=== PATIENT | male | born 1960 | race Caucasian/White ===

== ENCOUNTER 2017-10-07 15:52 | Inpatient (IN) | payer BC, OTHER ==
[~2017-10-07] VITALS: Ht 160 cm; Wt 89.2 kg
[2017-10-07] MEDS ORDERED: SOD CHLORIDE 0.9% 500 ML IV STA (16:28)
[2017-10-07 17:03] LABS: ABNORMAL IP MESSAGE 1; HEMATOCRIT 16.7 % (42.0-52.0); MEAN CORPUSCULAR HEMOGLOBIN 16.3 pg (29.0-33.0); MEAN CORPUSCULAR HGB CONC 25.1 g/dl (32.0-37.0); MEAN CORPUSCULAR VOLUME 64.7 fl (82.0-101.0); MEAN PLATELET VOLUME 10.5 fl (7.4-10.4); NUCLEATED RED BLOOD CELLS% 0.4 /100WBC (0.0-0.0); PLATELET COUNT 276 10^3/UL (140-415); POSITIVE DIFF @See below; RED BLOOD COUNT 2.58 10^6/ul (4.70-6.10); RED CELL DISTRIBUTION WIDTH 21.2 % (11.5-14.5); WHITE BLOOD COUNT 4.7 10^3/ul (4.8-10.8)
[2017-10-07 17:15] LABS: HEMOGLOBIN 4.2 g/dl (14.0-18.0)
[2017-10-07 17:16] LABS: INR 1.13; PROTIME 14.5 Sec (12.2-14.2); PT RATIO 1.1
[2017-10-07 17:17] LABS: PARTIAL THROMBOPLASTIN TIME 25.4 Sec (25.0-35.0)
[2017-10-07 17:21] LABS: ALANINE AMINOTRANSFERASE 26 IU/L (13-69); ALBUMIN 3.8 g/dl (3.3-4.9); ALBUMIN/GLOBULIN RATIO 1.26; ALKALINE PHOSPHATASE 80 IU/L (42-121); ANION GAP 13 (8-16); ASPARTATE AMINO TRANSFERASE 20 IU/L (15-46); BILIRUBIN,INDIRECT 0.2 mg/dl (0-1.1); BILIRUBIN,TOTAL 0.2 mg/dl (0.2-1.3); BLOOD UREA NITROGEN 8 mg/dl (7-20); CALCIUM 8.1 mg/dl (8.4-10.2); CARBON DIOXIDE 25 mmol/L (21-31); CHLORIDE 105 mmol/L (97-110); CREATININE 0.53 mg/dl (0.61-1.24); GLUCOSE 89 mg/dl (70-220); POTASSIUM 4.2 mmol/L (3.5-5.1); SODIUM 139 mmol/L (135-144); TOTAL PROTEIN 6.8 g/dl (6.1-8.1)
[2017-10-07 17:35] LABS: TROPONIN-I < 0.012 ng/ml (0.00-0.12)
[2017-10-07] MEDS ORDERED: FAMOTIDINE 20 MG INJ IV ONE (18:00)
[2017-10-07 18:03] LABS: ANISOCYTOSIS 3+ (0-0); BASOPHILS % (M) 1 % (0-2); EOSINOPHILS % (M) 3 % (0-7); ERYTHROBLAST% (NRBC) (M) 1 % (0-0); HYPOCHROMASIA 2+ (0-0); MICROCYTOSIS 3+ (0-0); MONOCYTES % (M) 6 % (0-11); PLATELET ESTIMATE NORMAL; POIKILOCYTOSIS 3+ (0-0); POLYCHROMASIA 2+ (0-0)
--- NOTE | 2017-10-07 18:18 | RADRPT ---
PROCEDURE: CT SCAN OF THE ABDOMEN AND PELVIS NON CONTRAST CLINICAL INDICATION: Left Mid abdominal pain, GI bleed TECHNIQUE: Utilizing the multi-slice spiral CT scanner, Transaxial images were obtained through the abdomen and pelvis without contrast. Additional sagittal, coronal, MPR images were also obtained. DICOM images are available Radiation Dose: CTDI vol 17.75 mGy, DLP 1169.32 mGy-cm. One of more of the following dose reduction techniques were utilized: -automatic exposure control -adjustment of the mA and/or kV according to patient size -Use of iterative reconstruction technique Contrast used: None COMPARISON: None FINDINGS: Limited slices through the lung bases demonstrates large retrocardiac hernia containing the entire s tomach, cardiomegaly without pericardial effusion or pneumothorax noted. CT Abdomen Liver, spleen, gallbladder, pancreas, adrenals appear unremarkable. Left kidney demonstrates [address] one in the left renal sinus without hydronephrosis. Large amount of intra-abdominal fat is noted. Bud wel gas pattern appears nonspecific with no free air or ascites noted. Appendix is seen appearing un remarkable. No retroperitoneal adenopathy noted. CT pelvis: Diverticuli noted in the rectosigmoid colon. Distended bladder normal prostate with calc ifications noted. No pelvic ascites seen. Bilateral inguinal hernia contains fat. IMPRESSION: Large retrocardiac hernia contains stomach. Nonobstructive stone left kidney. Few diverticula and distal descending colon and sigmoid colon without CT evidence of acute diverticu litis noted. RPTAT: AAOO Physician Carter Date Time Electronically viewed and signed by Physician Carter on 10/07/2017 18:18 MB/
[2017-10-07 18:36] LABS: RETICULOCYTE COUNT % 3.5 % (0.5-1.5)
--- NOTE | 2017-10-07 20:36 | ERD ---
ER Documentation Chief Complaint Chief Complaint CRITICAL LOW HG 5.6 HCT 21.5 HPI 57-year-old male comes to the emergency room his primary care doctor found his laboratories to have an emergent condition of a hemoglobin of 5.6. Patient states that he has been increasingly tired weak and dizzy especially while he is working. Denies any chest pain or shortness of breath. Denies any abdominal pain currently but states that he had abdominal pain in his left mid abdomen on and off before. He denies any dark stools or blood in his stools. He has not vomited. ROS All systems reviewed and are negative except as per history of present illness. PMhx/Soc Medical and Surgical Hx: pt denies Medical Hx Hx Alcohol Use: No Hx Substance Use: No Hx Tobacco Use: No Smoking Status: Never smoker Physical Exam Vitals Vital Signs Date Time Temp Pulse Resp B/P Pulse Ox O2 Delivery O2 Flow Rate FiO2 10/07/17 18:25 98.8 72 17 110/58 100 Room Air 10/07/17 16:02 99.8 76 20 128/58 99 Physical Exam Const: [] Mild distress, appears uncomfortable Head: Atraumatic Eyes: Normal scleral conjunctiva, very pale conjunctiva and lower eyelid ENT: Normal External Ears, Nose and Mouth. Neck: Full range of motion..~ No meningismus. Resp: Clear to auscultation bilaterally Cardio: Regular rate and rhythm, no murmurs Abd: Soft, non tender, non distended. Normal bowel sounds Skin: No petechiae, pale Ext: No cyanosis, or edema Neur: Awake and alert and oriented 3, no focal deficits Psych: Normal Mood and Affect Result Diagram: 10/07/17 1545 10/07/17 1545 Results 24 hrs Laboratory Tests Test 10/07/17 15:45 White Blood Count 4.710^3/ul Red Blood Count 2.5810^6/ul Hemoglobin 4.2g/dl Hematocrit 16.7% Mean Corpuscular Volume 64.7fl Mean Corpuscular Hemoglobin 16.3pg Mean Corpuscular Hemoglobin Concent 25.1g/dl Red Cell Distribution Width 21.2% Platelet Count 17745^3/UL Mean Platelet Volume 10.5fl Neutrophils % % Segmented Neutrophils % (Manual) 63% Lymphocytes % % Lymphocytes % (Manual) 27% Monocytes % % Monocytes % (Manual) 6% Eosinophils % % Eosinophils % (Manual) 3% Basophils % % Basophils % (Manual) 1% Nucleated Red Blood Cells % 1% Neutrophils # 10^3/ul Absolute Lymphocytes (Manual) 1.210^3/ul Lymphocytes # 10^3/ul Monocytes # 10^3/ul Absolute Monocytes (Manual) 0.210^3/ul Eosinophils # 10^3/ul Basophils # 10^3/ul Basophils # (Manual) 0.010^3/ul Nucleated Red Blood Cells # 10^3/ul Platelet Estimate NORMAL Polychromasia 2+ Hypochromasia 2+ Poikilocytosis 3+ Anisocytosis 3+ Microcytosis 3+ Absolute Reticulocyte Count 0.092X10^6 Percent Reticulocyte Count 3.5% Prothrombin Time 14.5Sec Prothrombin Time Ratio 1.1 INR International Normalized Ratio 1.13 Activated Partial Thromboplast Time 25.4Sec Sodium Level 139mmol/L Potassium Level 4.2mmol/L Chloride Level 105mmol/L Carbon Dioxide Level 25mmol/L Anion Gap 13 Blood Urea Nitrogen 8mg/dl Creatinine 0.53mg/dl Glucose Level 89mg/dl Calcium Level 8.1mg/dl Total Bilirubin 0.2mg/dl Direct Bilirubin 0.00mg/dl Indirect Bilirubin 0.2mg/dl Aspartate Amino Transf (AST/SGOT) 20IU/L Alanine Aminotransferase (ALT/SGPT) 26IU/L Alkaline Phosphatase 80IU/L Lactate Dehydrogenase 666IU/L Troponin I < 0.012ng/ml Total Protein 6.8g/dl Albumin 3.8g/dl Globulin 3.00g/dl Albumin/Globulin Ratio 1.26 Current Medications Medications (Trade) Dose Ordered Sig/Jolene Route PRN Reason Start Time Stop Time Status Last Admin Dose Admin Sodium Chloride (NS) 500 ml @ 500 mls/hr Q1H STAT IV 10/07/17 16:28 10/07/17 17:27 DC 10/07/17 17:01 Famotidine (Pepcid Iv) 20 mg ONCE ONCE IV 10/07/17 18:00 10/07/17 18:01 DC 10/07/17 17:56 Procedures/MDM Severe symptomatic anemia of unknown origin. Because of patient's vital sign stability is likely this process is been going on for some time and is somewhat compensated. He has no history of GI bleeding. Lactate dehydrogenase only slightly elevated hemolysis possibility but less likely. He will be admitted for further workup as the source is still likely GI. Signs remained stable and is being transfused 2 units of packed red blood cells to start with. Further transfusion will be handled by the admitting team. Abdomen pelvis reveals diverticulosis which is a possible conduit for the bleeding. Was hydrated with 500 cc of normal saline CT abdomen pelvis interpretation: Abdominal hernia, diverticulosis without diverticulitis, see no abnormal fat stranding, no free air perforation, no bowel obstruction, no fractures. Departure Diagnosis: Primary Impression: Severe anemia Additional Impressions: Symptomatic anemia Diverticulosis Condition: Serious ROYCE WELLS Oct 07, 2017 20:34
[2017-10-07] MEDS ORDERED: ACETAMINOPHEN 325 MG TAB PO PRN (21:00)
[2017-10-07] MEDS ORDERED: ONDANSETRON 4 MG INJ IV PRN (21:00)
[2017-10-07 22:02] LABS: TOTAL IRON BINDING CAPACITY 488 ug/dl (241-421)
[2017-10-07 22:09] LABS: IRON < 10 ug/dl (35-150)
[2017-10-08 00:16] VITALS: TEMP 98
[2017-10-08 01:00] VITALS: BP 116/57; PULSE 72; RESP 20
[2017-10-08 01:47] VITALS: Ht 160 cm; Wt 89.2 kg
[2017-10-08 02:18] VITALS: BP 122/66; RESP 20
[2017-10-08] MEDS: PANTOPRAZOLE 40 MG INJ IV SCH (05:21)
[2017-10-08 06:04] LABS: ABNORMAL IP MESSAGE 1; BASOPHILS % 0.6 % (0.0-2.0); EOSINOPHILS # 0.1 10^3/ul (0.0-0.5); EOSINOPHILS % 2.8 % (0.0-7.0); HEMATOCRIT 21.9 % (42.0-52.0); LYMPHOCYTES % 28.7 % (15.0-51.0); MEAN CORPUSCULAR HEMOGLOBIN 19.2 pg (29.0-33.0); MEAN CORPUSCULAR HGB CONC 27.9 g/dl (32.0-37.0); MEAN CORPUSCULAR VOLUME 68.9 fl (82.0-101.0); MONOCYTE # 0.3 10^3/ul (0.3-0.9); NEUTROPHIL # 2.1 10^3/ul (1.6-7.5); NEUTROPHILS % 59.5 % (39.0-77.0); NUCLEATED RED BLOOD CELLS # 0.1 10^3/ul (0.0-0.0); NUCLEATED RED BLOOD CELLS% 1.4 /100WBC (0.0-0.0); PLATELET COUNT 260 10^3/UL (140-415); POSITIVE DIFF @See below; RED BLOOD COUNT 3.18 10^6/ul (4.70-6.10); WHITE BLOOD COUNT 3.6 10^3/ul (4.8-10.8)
[2017-10-08 06:09] LABS: HEMOGLOBIN 6.1 g/dl (14.0-18.0)
[2017-10-08 06:31] LABS: ALBUMIN 3.5 g/dl (3.3-4.9); ALBUMIN/GLOBULIN RATIO 1.2; BILIRUBIN,INDIRECT 1.5 mg/dl (0-1.1); BILIRUBIN,TOTAL 1.5 mg/dl (0.2-1.3); CALCIUM 8.2 mg/dl (8.4-10.2); CREATININE 0.58 mg/dl (0.61-1.24); POTASSIUM 4.1 mmol/L (3.5-5.1); TOTAL PROTEIN 6.4 g/dl (6.1-8.1)
[2017-10-08 07:47] VITALS: BP 101/57; RESP 16
[2017-10-08] MEDS ORDERED: ONDANSETRON 4 MG INJ IV PRN (11:00)
--- NOTE | 2017-10-08 11:33 | HP ---
DATE OF ADMISSION: 10/07/2017 REASON FOR ADMISSION: Anemia. 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 A ccording to the patient, he had been feeling weak and tired for the last 2 to 3 weeks. Two times wh en he was working in the garden he felt dizzy, but there was no episode of any passing out. He star carlos eduardo noticing the left flank pain a week ago and that made him worried and went to the PMD. Patient went to the PMD and had labs drawn that showed hemoglobin of 5.6 and was told to come to the emergen cy department. Of note, patient said that he does not watch his poop always. He maybe might have h ad some blood in the poop. Denied any hematemesis, any melena, any hematuria. Denied any hemoptysi s. Patient said that he lost 10 pounds in the past 2 to 3 months which was probably intentional and sometimes he feels a joint pain which he says that probably due to his job. On arrival to ED, the patient had a hemoglobin of 5.2, white count of 4.2. The patient was given 2 units of blood and rep eat hemoglobin was 6.1 and he was admitted. PAST MEDICAL HISTORY: None. PAST SURGICAL HISTORY: The patient had a right wrist surgery many years ago and left surgery many years ago due to fall and due to accident. MEDICATIONS TAKING AT HOME: NONE. ALLERGIES: NONE. SOCIAL HISTORY: Denies any history of smoking, alcohol the patient used to take all drugs and quit 20 years ago. FAMILY HISTORY: Lives with the family, and children. No history of any cancer in the family. The patient never had an EGD or any colonoscopy. REVIEW OF SYSTEMS: The patient complains of generalized weakness, body aches and some dizziness spe lls 2 weeks ago and some left flank pain. Denies any headache, any blurry vision. Denies any chest pain, any shortness of breath, denies any cough. Denies any hematemesis, any melena, any bright bl ood per rectum. Denies any hematuria. Denies any focal neurological deficits. PHYSICAL EXAMINATION: VITAL SIGNS: Temperature afebrile, heart rate 79, respirations 18, blood pressure 101/57. GENERAL: Awake, alert, oriented x4, moderately built male, does not appear to be in any acute distr ess. HEENT: Pupils equal, round, reactive to light. Marked pallor present. NECK: Thick, supple, no JVD. HEART: Regular rate and rhythm. CHEST: Clear breath sounds bilaterally. ABDOMEN: Soft, nontender, nondistended, positive normoactive bowel sounds. EXTREMITIES: No clubbing, cyanosis, or edema. BACK: The patient does not have any flank pain. DIAGNOSTICS: BMP shows a BUN of 6, creatinine of 0.8, calcium 8.2, total bilirubin 1.5, indirect 1. 5. AST, ALT within normal limit. Alkaline phosphatase 76, LDH 666, total iron less than 10, TIBC 4 88. Percent sat is pending. White count is 3.6, hemoglobin is 6.1 from 4.2, MCV 68.9, platelet cou nt is 260, percent retic is 3.5. ASSESSMENT: This is a 57-year-old man presenting with: 1. Severe anemia which appears to be microcytic in nature. The patient seems to be iron deficient, ; however, the patient's total bilirubin is elevated and also positive high LDH, cannot rule o ut hemolysis. 2. Leukopenia. 3. Dizzy spells probably secondary to severe anemia. 4. Obesity. 5. Severe microcytosis. PLAN: At this period of time, the patient will be admitted to med/surg. The patient is status post 2 units of blood and receiving third unit of blood. Patient will send for haptoglobin. Peripheral smear will be reviewed by french binder. Will start the patient on IV iron [address] Jammie daly with hematology has already been consulted and GI has already been consulted, Dr. Pate, for bot h EGD and colonoscopy. The patient also had a CT of the abdomen and pelvis which showed large retro cardiac hernia containing stomach, nonobstructive stone left kidney, few diverticula. The rest of t he treatment will depend on the patient hospitalization course. Dictated By: GARCIA MONDRAGON/HARI Conf#: [id number] DID#: [id number] CC: PAU DURAN MD;*EndCC*
--- NOTE | 2017-10-08 12:15 | QN ---
Documentation Comment H AND P DONE GARCIA LOTT MD Oct 08, 2017 12:15
[2017-10-08] MEDS: SOD FERRIC GLUC COMPLX 125 MG in SOD CHLORIDE 0.9% 100 ML IVPB SCH (12:24)
--- NOTE | 2017-10-08 12:35 | CONS ---
Date/Time of Note Date/Time of Note DATE: 10/08/17 TIME: 12:10 Assessment/Plan Assessment/Plan Chief Complaint/Hosp Course Summary Assessment and Plan: Assessment: Severe iron deficiency anemia Dizziness-likely secondary to anemia Plan: Continue to monitor H/H- transfuse if Hgb less than 7.5 EGD/Colonoscopy tomorrow NPO after 10am Clear liquids today Endoscopy - risks/benefits/alternatives/indications of procedure and sedation/ anesthesia discussed with patient who states understanding and gives informed consent to proceed. All questions answered Chief Complaint/Reason for Visit: Iron deficiency anemia History of Present Illness: This is a 57-year-old male with no previous past medical history admitted to the ER from primary doctor for hemoglobin of 5.6, Pt was c/o dizziness at the work site and left flank pain, went to see PCP and was found to be anemic. He was given 2units of PRBCs since admission, HGB was reevaluated noted to be 6.1 x1 more unit was then given. GI has been consulted due to GOLDY. At the time of evaluation patient denies, abdominal pain, nausea, vomiting, hematemesis, hematochezia, dysphagia, hematuria, unintentional weight loss. He states he does not usually look at the color of stool last time he did look described as brown. Bowel movements are daily described as being hard. He also complains of left flank pain aggravated with exertion relieved with resting, describes pain as a twisting feeling has improved since admission. He has never had an EGD or colonoscopy. He denies any family history of colon cancer. Plan is to start clear liquids today n.p.o. after 10 AM tomorrow, and EGD/colonoscopy tomorrow afternoon. Continue to monitor H&H and transfuse hemoglobin less than 7.5 Past Medical History: No past medical history Allergies: No known allergies PHYSICAL EXAMINATION: GENERAL: Well developed, well nourished, alert & oriented x 3, in no acute distress SKIN: No lesions, no stigmata chronic liver disease, no evidence of bleeding diathesis LYMPHATIC: No palpable lymphadenopathy. HEAD: Normocephalic, atraumatic, no tenderness. EYES: Pupils equal reactive to light and accommodation, full extraocular movements, sclera clear, non-icteric, no discharge. EARS/NOSE AND THROAT: Ears normal, nose normal, oropharynx normal, oral membranes well hydrated without lesions. NECK: Supple, no masses. CHEST: Inspection within normal limits. CARDIOVASCULAR: Heart: Regular rate and rhythm, no murmurs, gallops or rubs. P GASTROINTESTINAL AND LIVER: Abdomen: Soft, non tenderness, non-distended, no hernias, no masses, no organomegaly, no ascites, no guarding, no rebound tenderness, normoactive bowel sounds. Rectal: Deferred. GENITOURINARY: Male genitalia within normal limits. EXTREMITIES: No cyanosis, clubbing or edema. Problems: Consultation Date/Type/Reason Admit Date/Time Oct 07, 2017 at 20:41 Date of Consultation: Oct 08, 2017 Type of Consultation: GI Reason for Consultation Iron deficiency anemia Constitutional: no complaints Eyes: no complaints ENT: no complaints Respiratory: no complaints Cardiovascular: no complaints Gastrointestinal: no complaints Genitourinary: no complaints Skin: no complaints Neurologic: no complaints Past Medical History Medical History: no pertinent history Past Surgical History Past Surgical Hx: other (Elbow surgery) Family History Significant Family History: other (No family history of colon cancer) Social History Smoking Status: Former smoker (Quit over 30 years ago) Drug Use: other (History of drug use, denies history of IV drug use) Exam/Review of Systems Vital Signs Vitals Vital Signs Date Time Temp Pulse Resp B/P Pulse Ox O2 Delivery O2 Flow Rate FiO2 10/08/17 07:47 98.9 79 16 101/57 99 10/08/17 01:00 Room Air Intake and Output 10/07/17 10/07/17 10/08/17 15:00 23:00 07:00 Intake Total 400 ml Output Total 1750 ml Balance -1350 ml Results Result Diagram: 10/08/17 0527 10/08/17 0527 Results 24 hrs Laboratory Tests Test 10/07/17 15:45 10/07/17 21:13 10/08/17 05:27 10/08/17 06:17 White Blood Count 4.7 L 3.6 #L Red Blood Count 2.58 L 3.18 #L Hemoglobin 4.2 *L 6.1 #*L Hematocrit 16.7 L 21.9 #L Mean Corpuscular Volume 64.7 L 68.9 L Mean Corpuscular Hemoglobin 16.3 L 19.2 L Mean Corpuscular Hemoglobin Concent 25.1 L 27.9 L Red Cell Distribution Width 21.2 H 23.0 H Platelet Count 276 260 Mean Platelet Volume 10.5 H 10.0 Neutrophils % 59.5 Segmented Neutrophils % (Manual) 63 Lymphocytes % 28.7 Lymphocytes % (Manual) 27 Monocytes % 7.0 Monocytes % (Manual) 6 Eosinophils % 2.8 Eosinophils % (Manual) 3 Basophils % 0.6 Basophils % (Manual) 1 Nucleated Red Blood Cells % 1 H 1.4 H Neutrophils # 2.1 Absolute Lymphocytes (Manual) 1.2 Lymphocytes # 1.0 Monocytes # 0.3 Absolute Monocytes (Manual) 0.2 L Eosinophils # 0.1 Basophils # 0.0 Basophils # (Manual) 0.0 Nucleated Red Blood Cells # 0.1 H Platelet Estimate NORMAL Polychromasia 2+ Hypochromasia 2+ Poikilocytosis 3+ Anisocytosis 3+ Microcytosis 3+ Absolute Reticulocyte Count 0.092 Percent Reticulocyte Count 3.5 H Prothrombin Time 14.5 H Prothrombin Time Ratio 1.1 INR International Normalized Ratio 1.13 Activated Partial Thromboplast Time 25.4 Sodium Level 139 141 Potassium Level 4.2 4.1 Chloride Level 105 106 Carbon Dioxide Level 25 27 Anion Gap 13 12 Blood Urea Nitrogen 8 6 L Creatinine 0.53 L 0.58 L Glucose Level 89 101 Calcium Level 8.1 L 8.2 L Total Bilirubin 0.2 1.5 H Direct Bilirubin 0.00 0.00 Indirect Bilirubin 0.2 1.5 H Aspartate Amino Transf (AST/SGOT) 20 16 Alanine Aminotransferase (ALT/SGPT) 26 19 Alkaline Phosphatase 80 76 Lactate Dehydrogenase 666 H Troponin I < 0.012 Total Protein 6.8 6.4 Albumin 3.8 3.5 Globulin 3.00 2.90 Albumin/Globulin Ratio 1.26 1.20 Iron Level < 10 L Total Iron Binding Capacity 488 H Percent Iron Saturation Ferritin 3.4 L Lab Scanned Report BLOOD TRANSFUSION Medications Medications Current Medications Pantoprazole (Protonix Iv) 40 mg DAILY@06 IV Last administered on 10/08/17t 05 :21; Admin Dose 40 MG; Start 10/08/17 at 06:00 Acetaminophen 650 mg 650 mg Q6H PRN PO PAIN AND OR ELEVATED TEMP; Start at 02:00 Ferric Sodium Gluconate Complex/ Sodium Chloride (Ferrlecit/NS) 110 ml @ 110 mls/hr Q24H IVPB ; Start 10/08/17 at 12:00; Stop 10/12/17 at 12:59 Ondansetron HCl (Zofran Inj) 4 mg Q6H PRN IV NAUSEA AND/OR VOMITING; Start at 11:00 Tramadol HCl (Ultram) 50 mg Q6 PRN NGT pain; Start 10/08/17 at 11:00 Copies To: CC: VAUGHN TUCKER MD [facility] Oct 08, 2017 12:20
[2017-10-08] MEDS ORDERED: BISACODYL (EC) 5 MG TAB PO ONE (13:00)
[2017-10-08 13:06] LABS: INR 1.13; PROTIME 14.5 Sec (12.2-14.2); PT RATIO 1.1
[2017-10-08 14:57] LABS: ABNORMAL IP MESSAGE 1; BASOPHILS % 0.6 % (0.0-2.0); EOSINOPHILS # 0.1 10^3/ul (0.0-0.5); HEMATOCRIT 25.7 % (42.0-52.0); HEMOGLOBIN 7.2 g/dl (14.0-18.0); LYMPHOCYTES # 1.3 10^3/ul (0.8-2.9); LYMPHOCYTES % 26.5 % (15.0-51.0); MEAN CORPUSCULAR HEMOGLOBIN 19.8 pg (29.0-33.0); MEAN CORPUSCULAR VOLUME 70.8 fl (82.0-101.0); MEAN PLATELET VOLUME 9.9 fl (7.4-10.4); MONOCYTE # 0.4 10^3/ul (0.3-0.9); MONOCYTES % 7.9 % (0.0-11.0); NEUTROPHIL # 3.2 10^3/ul (1.6-7.5); NEUTROPHILS % 62.2 % (39.0-77.0); NUCLEATED RED BLOOD CELLS # 0.1 10^3/ul (0.0-0.0); NUCLEATED RED BLOOD CELLS% 1.4 /100WBC (0.0-0.0); PLATELET COUNT 267 10^3/UL (140-415); POSITIVE DIFF @See below; RED BLOOD COUNT 3.63 10^6/ul (4.70-6.10); RED CELL DISTRIBUTION WIDTH 23.8 % (11.5-14.5); WHITE BLOOD COUNT 5.1 10^3/ul (4.8-10.8)
[2017-10-08 15:12] VITALS: BP 130/75; RESP 16
[2017-10-08] MEDS ORDERED: MAGNESIUM CITRATE 300 ML BTL PO ONE (17:30)
[2017-10-08] MEDS ORDERED: POLYETHYLENE GLYCOL 3350 119 GM POWDER PO ONE (18:30)
[2017-10-08 19:22] VITALS: BP 131/71; RESP 18
--- NOTE | 2017-10-08 22:39 | CONS ---
Date/Time of Note Date/Time of Note DATE: 10/08/17 TIME: 22:27 Assessment/Plan Assessment/Plan Chief Complaint/Hosp Course 57 yo male with #Severe iron deficiency anemia -need to first rule out GI bleed or GI mass -pt scheduled fo EGD colonoscopy tomorrow -start Ferrilicit 125 mg q day x 5 days #elevated indirect bili -this occurred after the CT scan and I believe this is secondary to the scan itself -peripheral smear does not demonstrate evidence of hemolysis -will f/u haptoglobin. steroids not indicated at this time #Fatigue -2/2 to iron deficiency anemia #Dizziness -secondary to anemia -improved since blood transfusion -will continue to follow Problems: Consultation Date/Type/Reason Admit Date/Time Oct 07, 2017 at 20:41 Date of Consultation: Oct 08, 2017 Type of Consultation: Hematology Reason for Consultation iron deficiency anemia Referring Provider: GARCIA LOTT MD Hx of Present Illness 57-year-old male with no significant PMH who presented to ER with weakness and dizziness for x 2 -3 weeks and found with a Hg 5.6. Pt was initially evaluated by his PMD for flank pain and dizziness and was found to be significantly anemic on out patient labs. His PMD then told him to come to [facility] ER. Pt denies any melena, BRBPR or any evidence of GI bleed. He denies vadim hematuria or hemoptysis. Labs were also significant for MCV of 64 and severe iron deficiency with a ferritin of just 3.4. The patient has since been given 2 units of blood and repeat hemoglobin was 6.1. Upon admission, pt underwent a CT A/P which was not revealing. Patient's indirect bili arely to 1.3 and her LDH was slightly elevated to 666. Hence we were called to rule out a hemolytic process. Constitutional: no complaints Eyes: no complaints ENT: no complaints Respiratory: no complaints Cardiovascular: no complaints Gastrointestinal: no complaints Genitourinary: no complaints Skin: no complaints Neurologic: no complaints Past Medical History Medical History: no pertinent history Past Surgical History Past Surgical Hx: no surgical history, other (Elbow surgery) Family History Significant Family History: no pertinent family hx Social History Smoking Status: Former smoker (Quit over 30 years ago) Drug Use: other (History of drug use, denies history of IV drug use) Exam/Review of Systems Vital Signs Vitals Vital Signs Date Time Temp Pulse Resp B/P Pulse Ox O2 Delivery O2 Flow Rate FiO2 10/08/17 19:22 98.2 67 18 131/71 100 10/08/17 01:00 Room Air Intake and Output 10/07/17 10/07/17 10/08/17 15:00 23:00 07:00 Intake Total 400 ml Output Total 1750 ml Balance -1350 ml Exam Constitutional: alert, oriented Psych: nl mood/affect, no complaints Head: normocephalic ENMT: nl external ears & nose, nl lips & teeth Neck: non-tender, supple Respiratory: clear to auscultation, normal air movement Cardiovascular: nl pulses, regular rate and rhythm Gastrointestinal: soft Musculoskeletal: nl extremities to inspection, nl gait and stance Extremities: normal pulses Results Result Diagram: 10/08/17 1408 10/08/17 0527 Results 24 hrs Laboratory Tests Test 10/08/17 05:27 10/08/17 06:17 10/08/17 12:31 10/08/17 14:08 White Blood Count 3.6 #L 5.1 # Red Blood Count 3.18 #L 3.63 L Hemoglobin 6.1 #*L 7.2 L Hematocrit 21.9 #L 25.7 L Mean Corpuscular Volume 68.9 L 70.8 L Mean Corpuscular Hemoglobin 19.2 L 19.8 L Mean Corpuscular Hemoglobin Concent 27.9 L 28.0 L Red Cell Distribution Width 23.0 H 23.8 H Platelet Count 260 267 Mean Platelet Volume 10.0 9.9 Neutrophils % 59.5 62.2 Lymphocytes % 28.7 26.5 Monocytes % 7.0 7.9 Eosinophils % 2.8 2.0 Basophils % 0.6 0.6 Nucleated Red Blood Cells % 1.4 H 1.4 H Neutrophils # 2.1 3.2 Lymphocytes # 1.0 1.3 Monocytes # 0.3 0.4 Eosinophils # 0.1 0.1 Basophils # 0.0 0.0 Nucleated Red Blood Cells # 0.1 H 0.1 H Sodium Level 141 Potassium Level 4.1 Chloride Level 106 Carbon Dioxide Level 27 Anion Gap 12 Blood Urea Nitrogen 6 L Creatinine 0.58 L Glucose Level 101 Calcium Level 8.2 L Total Bilirubin 1.5 H Direct Bilirubin 0.00 Indirect Bilirubin 1.5 H Aspartate Amino Transf (AST/SGOT) 16 Alanine Aminotransferase (ALT/SGPT) 19 Alkaline Phosphatase 76 Total Protein 6.4 Albumin 3.5 Globulin 2.90 Albumin/Globulin Ratio 1.20 Lab Scanned Report BLOOD TRANSFUSION Prothrombin Time 14.5 H Prothrombin Time Ratio 1.1 INR International Normalized Ratio 1.13 Medications Medications Current Medications Pantoprazole (Protonix Iv) 40 mg DAILY@06 IV Last administered on 10/08/17 05 :21; Admin Dose 40 MG; Start 10/08/17 at 06:00 Acetaminophen 650 mg 650 mg Q6H PRN PO PAIN AND OR ELEVATED TEMP; Start at 02:00 Ferric Sodium Gluconate Complex/ Sodium Chloride (Ferrlecit/NS) 110 ml @ 110 mls/hr Q24H IVPB Last administered on 10/08/17 12:24; Admin Dose 110 MLS/HR; Start 10/08/17 at 12:00; Stop 10/12/17 at 12:59 Ondansetron HCl (Zofran Inj) 4 mg Q6H PRN IV NAUSEA AND/OR VOMITING; Start at 11:00 Tramadol HCl (Ultram) 50 mg Q6 PRN NGT pain; Start 10/08/17 at 11:00 TIKA BAUER M.D. Oct 08, 2017 22:38
[2017-10-09] VITALS (8 sets, daily range): BP systolic 121–142; BP diastolic 57–81; PULSE 52–66; RESP 16–23
[2017-10-09 05:50] LABS: ABNORMAL IP MESSAGE 1; BASOPHILS % 0.6 % (0.0-2.0); EOSINOPHILS # 0.2 10^3/ul (0.0-0.5); EOSINOPHILS % 2.9 % (0.0-7.0); HEMATOCRIT 28.7 % (42.0-52.0); HEMOGLOBIN 8.3 g/dl (14.0-18.0); LYMPHOCYTES # 1.5 10^3/ul (0.8-2.9); LYMPHOCYTES % 29.9 % (15.0-51.0); MEAN CORPUSCULAR HEMOGLOBIN 20.9 pg (29.0-33.0); MEAN CORPUSCULAR HGB CONC 28.9 g/dl (32.0-37.0); MEAN CORPUSCULAR VOLUME 72.3 fl (82.0-101.0); MEAN PLATELET VOLUME 9.8 fl (7.4-10.4); MONOCYTE # 0.4 10^3/ul (0.3-0.9); NEUTROPHILS % 58.4 % (39.0-77.0); NUCLEATED RED BLOOD CELLS # 0.1 10^3/ul (0.0-0.0); NUCLEATED RED BLOOD CELLS% 1.4 /100WBC (0.0-0.0); PLATELET COUNT 251 10^3/UL (140-415); POSITIVE DIFF @See below; RED BLOOD COUNT 3.97 10^6/ul (4.70-6.10); RED CELL DISTRIBUTION WIDTH 24.3 % (11.5-14.5); WHITE BLOOD COUNT 5.1 10^3/ul (4.8-10.8)
[2017-10-09] MEDS ORDERED: POLYETHYLENE GLYCOL 3350 119 GM POWDER PO ONE (06:00)
[2017-10-09] MEDS: PANTOPRAZOLE 40 MG INJ IV SCH (06:02)
[2017-10-09] MEDS: traMADol 50 MG TAB NGT PRN (06:09)
[2017-10-09 06:30] LABS: ALBUMIN 3.7 g/dl (3.3-4.9); ALBUMIN/GLOBULIN RATIO 1.23; BILIRUBIN,INDIRECT 0.9 mg/dl (0-1.1); BILIRUBIN,TOTAL 0.9 mg/dl (0.2-1.3); CALCIUM 8.3 mg/dl (8.4-10.2); CREATININE 0.61 mg/dl (0.61-1.24); POTASSIUM 4.2 mmol/L (3.5-5.1); TOTAL PROTEIN 6.7 g/dl (6.1-8.1)
[2017-10-09] MEDS ORDERED: BISACODYL (EC) 5 MG TAB PO ONE (08:00)
[2017-10-09] MEDS: SOD FERRIC GLUC COMPLX 125 MG in SOD CHLORIDE 0.9% 100 ML IVPB SCH (12:02)
--- NOTE | 2017-10-09 13:55 | PN ---
Date/Time of Note Date/Time of Note DATE: 10/09/17 TIME: 13:51 Assessment/Plan VTE Prophylaxis VTE Prophylaxis Intervention: other Lines/Catheters IV C[facility]ter Type (from [facility]): Saline Lock Assessment/Plan Chief Complaint/Hosp Course ASSESSMENT: This is a 57-year-old man presenting with: 1. Severe anemia which appears to be microcytic in nature. The patient seems to be iron deficient, however, the patient's total bilirubin is elevated and also positive high LDH, cannot rule out hemolysis. But bilirubin normalised now. Unlikely Hemolysis 2. Leukopenia. 3. Dizzy spells probably secondary to severe anemia. 4. Obesity. Plan - EGD and Colonoscopy today - Monitor H/H - c/w PPI - c/w iv Fe - Appreciate GI and Hematology consults Problems: Subjective 24 Hr Interval Summary Free Text/Dictation Now pt said that he observed his stool and it was red in color Hb 8.3 today Exam/Review of Systems Vital Signs Vitals Vital Signs Date Time Temp Pulse Resp B/P Pulse Ox O2 Delivery O2 Flow Rate FiO2 10/09/17 07:42 98.4 59 20 135/70 97 10/08/17 01:00 Room Air Intake and Output 10/08/17 10/08/17 10/09/17 15:00 23:00 07:00 Intake Total 1700 ml 600 ml Output Total 1100 ml Balance 600 ml 600 ml Exam gENERAL: Awake, alert, oriented x4, moderately built male, does not appear to be in any acute distress. HEENT: Pupils equal, round, reactive to light. Marked pallor present. NECK: Thick, supple, no JVD. HEART: Regular rate and rhythm. CHEST: Clear breath sounds bilaterally. ABDOMEN: Soft, nontender, nondistended, positive normoactive bowel sounds. EXTREMITIES: No clubbing, cyanosis, or edema. BACK: The patient does not have any flank pain. Results Result Diagram: 10/09/17 0523 10/09/17 0523 Results 24 hrs Laboratory Tests Test 10/08/17 14:08 10/09/17 05:23 10/09/17 06:40 White Blood Count 5.1 # 5.1 Red Blood Count 3.63 L 3.97 L Hemoglobin 7.2 L 8.3 L Hematocrit 25.7 L 28.7 L Mean Corpuscular Volume 70.8 L 72.3 L Mean Corpuscular Hemoglobin 19.8 L 20.9 L Mean Corpuscular Hemoglobin Concent 28.0 L 28.9 L Red Cell Distribution Width 23.8 H 24.3 H Platelet Count 267 251 Mean Platelet Volume 9.9 9.8 Neutrophils % 62.2 58.4 Lymphocytes % 26.5 29.9 Monocytes % 7.9 7.0 Eosinophils % 2.0 2.9 Basophils % 0.6 0.6 Nucleated Red Blood Cells % 1.4 H 1.4 H Neutrophils # 3.2 3.0 Lymphocytes # 1.3 1.5 Monocytes # 0.4 0.4 Eosinophils # 0.1 0.2 Basophils # 0.0 0.0 Nucleated Red Blood Cells # 0.1 H 0.1 H Sodium Level 142 Potassium Level 4.2 Chloride Level 107 Carbon Dioxide Level 27 Anion Gap 12 Blood Urea Nitrogen 7 Creatinine 0.61 Glucose Level 104 Calcium Level 8.3 L Total Bilirubin 0.9 Direct Bilirubin 0.00 Indirect Bilirubin 0.9 Aspartate Amino Transf (AST/SGOT) 19 Alanine Aminotransferase (ALT/SGPT) 22 Alkaline Phosphatase 84 Total Protein 6.7 Albumin 3.7 Globulin 3.00 Albumin/Globulin Ratio 1.23 Lab Scanned Report BLOOD TRANSFUSION Medications Medications Current Medications Pantoprazole (Protonix Iv) 40 mg DAILY@06 IV Last administered on 10/09/17 06 :02; Admin Dose 40 MG; Start 10/08/17 at 06:00 Acetaminophen 650 mg 650 mg Q6H PRN PO PAIN AND OR ELEVATED TEMP; Start at 02:00 Ferric Sodium Gluconate Complex/ Sodium Chloride (Ferrlecit/NS) 110 ml @ 110 mls/hr Q24H IVPB Last administered on 10/09/17 12:02; Admin Dose 110 MLS/HR; Start 10/08/17 at 12:00; Stop 10/12/17 at 12:59 Ondansetron HCl (Zofran Inj) 4 mg Q6H PRN IV NAUSEA AND/OR VOMITING; Start at 11:00 Tramadol HCl (Ultram) 50 mg Q6 PRN NGT pain Last administered on 10/09/17 06: 09; Admin Dose 50 MG; Start 10/08/17 at 11:00 GARCIA LOTT MD Oct 09, 2017 13:55
[2017-10-09] MEDS ORDERED: PROPOFOL 20 ML ONE (16:37)
[2017-10-09] MEDS ORDERED: FENTAnyl 50 MCG/ML VIAL ONE (16:38)
[2017-10-09] MEDS ORDERED: MIDAZOLAM 1 MG/ML 2 ML INJ ONE (16:38)
--- NOTE | 2017-10-09 17:10 | OPPN ---
Date/Time of Note Date/Time of Note DATE: 10/09/17 TIME: 17:07 Proc Note GI Procedure Date 10/09/17 Indication: other (Anemia) Pre-procedure Diagnosis Anemia Post-procedure Diagnosis Impression: Large paraesophageal hernia Erosive gastritis. Rule out H. pylori infection. Biopsies obtained Otherwise normal EGD Plan: PPI therapy Review pathology . Procedure Performed: Endoscopy (With biopsies) Surgeon VAUGHN TUCKER MD See signature line Planning Engineer none Anesthesia Type: MAC Anesthesiologist: JEFF MARTINEZ MD Tourniquet Time none EBL none Transfusion required none Biopsy 1: Gastric body and antrum/rule out H. pylori infection Grafts/Implants none Tubes/Drains none Complication(s) none Disposition: PACU Procedure Description Preoperative Diagnosis: After informed consent, with the patient/relatives understanding the procedure, its indications, potential risks and complications, including but not limited to : allergic reaction, bleeding, perforation or infection, and after all pertinent questions were answered to the patients satisfaction, the patient/ relatives signed witnessed informed consent. Following this, premedication was administered slowly IV push under careful cardiovascular and respiratory monitoring with pulse oximetry, automatic blood pressure, and conveyor monitor. Once the sedative effect was achieved the patient was place in the left lateral decubitus, the panendoscope was introduced and advanced under visual control. Careful examination of the upper gastrointestinal tract, both on insertion as well as withdrawal of the instrument disclosing the following findings: ESOPHAGUS: the mucosa of the entire esophagus was carefully examined and showed the following findings: the mucosa appears within normal limits. There is no evidence of esophagitis, varices, neoplasm, or stricture. No Hiatal Hernia identified. STOMACH: Upon entrance to the stomach air was insufflated, the gastric osborne distended normally. The mucosa of the fundus, body and antrum of the stomach was carefully examined both head-on and on retroflexion, and showed the following findings: There is a large paraesophageal hernia. There is significant erythema edema and erosions of the mucosa at the hiatus and the antrum. Biopsies were obtained to rule out H. pylori infection. Otherwise the mucosa appears within normal limits with no abnormalities. There is no evidence of ulcers or neoplasm. PYLORUS: The pylorus was carefully examined and showed the following findings: the pylorus appears patent and within normal limits, with no evidence of gastric outlet obstruction. DUODENUM: The duodenal mucosa was carefully examined in the duodenal bulb as well as the second portion of the duodenum and showed the following findings: the mucosa appears unremarkable with no evidence of duodenitis, ulcer or neoplasm. Copies To: CC: VAUGHN TUCKER MD, MORDO MD Oct 09, 2017 17:10
--- NOTE | 2017-10-09 17:12 | OPPN ---
Date/Time of Note Date/Time of Note DATE: 10/09/17 TIME: 17:10 Proc Note GI Procedure Date 10/09/17 Indication: other (Anemia) Pre-procedure Diagnosis Anemia Post-procedure Diagnosis Impression: Normal colonic mucosa to cecum Moderate-sized internal hemorrhoids. Plan: Continue present regimen High-fiber diet Annual Hemoccult stool testing Screening colonoscopy in 10 years . Procedure Performed: Colonoscopy Surgeon VAUGHN TUCKER MD See signature line Cost Estimating Manager none Anesthesia Type: MAC Anesthesiologist: JEFF MARTINEZ MD Tourniquet Time none EBL none Transfusion required none Biopsy 1: None Grafts/Implants none Tubes/Drains none Complication(s) none Disposition: PACU Procedure Description After informed consent, with the patient/relatives understanding the procedure, its indications and potential risks and complications, including but not limited to: Allergic reaction, bleeding, perforation, infection, and after all pertinent questions were answered to the patient's satisfaction, the patient/ relatives signed the witnessed informed consent. Following this, premedication was administered slowly IV push under careful cardiovascular and respiratory monitoring with pulse OXIMETRY, automatic blood pressure, and radiation monitor. Once the sedative effect was achieved, the patient was placed in the left lateral decubitus position, digital rectal examination was performed. The colonoscope was then introduced and advanced under visual control throughout all segments of the colon including: the rectum, sigmoid, descending colon, splenic flexure, transverse colon, hepatic flexure, ascending colon and finally reaching the cecum which was clearly identified by transillumination, finger indentation and the ileocecal valve. Careful examination of the mucosa of the lower gastrointestinal tract both on insertion as well as withdrawal of the instrument disclosed the following findings: PREPARATION QUALITY: [Adequate], RECTAL EXAM: The anorectal area was visualized examined and digital rectal examination performed with the following findings: No evidence of perirectal disease, no masses. COLONIC MUCOSA: The mucosa of all segments of the colon was carefully examined and showed the following findings: the examined mucosa appears within normal limits. There is no evidence of inflammatory changes, diverticular formation, polyps or other neoplasms, vascular malformation, or any other abnormality. Moderate-sized internal hemorrhoids were present. The instrument was then withdrawn, the patient tolerated the procedure well and was transferred out of the Endoscopy Suite awake and in good condition to continue recovery under observation. Copies To: CC: VAUGHN TUCKER MD, MORDO MD Oct 09, 2017 17:12
--- NOTE | 2017-10-09 17:17 | HPN ---
Date/Time of Note Date/Time of Note DATE: 10/09/17 TIME: 16:16 Interval H&P Admission Note Pt. seen H&P reviewed: No system changes VAUGHN TUCKER MD Oct 09, 2017 17:17
[2017-10-10 02:00] VITALS: BP 106/59; RESP 16
[2017-10-10 05:35] LABS: ABNORMAL IP MESSAGE 1; BASOPHILS % 0.5 % (0.0-2.0); EOSINOPHILS # 0.1 10^3/ul (0.0-0.5); EOSINOPHILS % 2.3 % (0.0-7.0); HEMATOCRIT 29.3 % (42.0-52.0); HEMOGLOBIN 8.5 g/dl (14.0-18.0); LYMPHOCYTES # 1.7 10^3/ul (0.8-2.9); LYMPHOCYTES % 29.9 % (15.0-51.0); MEAN CORPUSCULAR HEMOGLOBIN 21.3 pg (29.0-33.0); MEAN CORPUSCULAR VOLUME 73.4 fl (82.0-101.0); MEAN PLATELET VOLUME 9.7 fl (7.4-10.4); MONOCYTE # 0.3 10^3/ul (0.3-0.9); MONOCYTES % 5.1 % (0.0-11.0); NEUTROPHIL # 3.5 10^3/ul (1.6-7.5); NEUTROPHILS % 61.9 % (39.0-77.0); NUCLEATED RED BLOOD CELLS% 0.7 /100WBC (0.0-0.0); PLATELET COUNT 242 10^3/UL (140-415); POSITIVE DIFF @See below; RED BLOOD COUNT 3.99 10^6/ul (4.70-6.10); WHITE BLOOD COUNT 5.7 10^3/ul (4.8-10.8)
[2017-10-10] MEDS: PANTOPRAZOLE 40 MG INJ IV SCH (05:57)
[2017-10-10 08:03] VITALS: BP 118/74; RESP 16
--- NOTE | 2017-10-10 08:46 | CONS ---
Date/Time of Note Date/Time of Note DATE: 10/10/17 TIME: 08:44 Assessment/Plan Assessment/Plan Chief Complaint/Hosp Course 57 yo male with #Severe iron deficiency anemia -colonoscopy reveals hemorrhoids and rectal bleeding -start Ferrlecit 125 mg q day x 5 days #hemorrhoids -will likely need surgical evaluation for the bleeding hemorrhoids causing this level of anemia #elevated indirect bili -this occurred after the CT scan and I believe this is secondary to the scan itself -peripheral smear does not demonstrate evidence of hemolysis. furthermore haptoglobin is normal #Fatigue -2/2 to iron deficiency anemia #Dizziness -secondary to anemia -improved since blood transfusion -will continue to follow Problems: Consultation Date/Type/Reason Admit Date/Time Oct 07, 2017 at 20:41 Initial Consult Date 10/08/17 Type of Consultation: Hematology Reason for Consultation iron deficiency anemia Referring Provider: GARCIA LOTT MD 24 HR Interval Summary Free Text/Dictation colonoscopy revealed hemorrhoids and rectal bleeding Exam/Review of Systems Vital Signs Vitals Vital Signs Date Time Temp Pulse Resp B/P Pulse Ox O2 Delivery O2 Flow Rate FiO2 10/10/17 08:03 98.4 71 16 118/74 98 10/09/17 17:57 Room Air Intake and Output 10/09/17 10/09/17 10/10/17 14:59 22:59 06:59 Intake Total 850 ml 500 ml Output Total 800 ml Balance 50 ml 500 ml Exam Constitutional: alert, oriented Psych: no complaints Head: normocephalic Eyes: nl conjunctiva ENMT: nl external ears & nose, nl lips & teeth Neck: non-tender, supple Respiratory: clear to auscultation Cardiovascular: regular rate and rhythm Gastrointestinal: soft Musculoskeletal: nl extremities to inspection, nl gait and stance Neurological: ROLLER HAND II-XII intact Results Result Diagram: 10/10/17 0502 10/09/17 0523 Results 24 hrs Laboratory Tests Test 10/10/17 05:02 White Blood Count 5.7 Red Blood Count 3.99 L Hemoglobin 8.5 L Hematocrit 29.3 L Mean Corpuscular Volume 73.4 L Mean Corpuscular Hemoglobin 21.3 L Mean Corpuscular Hemoglobin Concent 29.0 L Red Cell Distribution Width 26.0 H Platelet Count 242 Mean Platelet Volume 9.7 Neutrophils % 61.9 Lymphocytes % 29.9 Monocytes % 5.1 Eosinophils % 2.3 Basophils % 0.5 Nucleated Red Blood Cells % 0.7 H Neutrophils # 3.5 Lymphocytes # 1.7 Monocytes # 0.3 Eosinophils # 0.1 Basophils # 0.0 Nucleated Red Blood Cells # 0.0 Medications Medications Current Medications Pantoprazole (Protonix Iv) 40 mg DAILY@06 IV Last administered on 10/10/17 05 :57; Admin Dose 40 MG; Start 10/08/17 at 06:00 Acetaminophen 650 mg 650 mg Q6H PRN PO PAIN AND OR ELEVATED TEMP; Start at 02:00 Ferric Sodium Gluconate Complex/ Sodium Chloride (Ferrlecit/NS) 110 ml @ 110 mls/hr Q24H IVPB Last administered on 10/09/17 12:02; Admin Dose 110 MLS/HR; Start 10/08/17 at 12:00; Stop 10/12/17 at 12:59 Ondansetron HCl (Zofran Inj) 4 mg Q6H PRN IV NAUSEA AND/OR VOMITING; Start at 11:00 Tramadol HCl (Ultram) 50 mg Q6 PRN NGT pain Last administered on 10/09/17 06: 09; Admin Dose 50 MG; Start 10/08/17 at 11:00 TIKA BAUER M.D. Oct 10, 2017 08:46
--- NOTE | 2017-10-10 09:45 | PN ---
Date/Time of Note Date/Time of Note DATE: 10/10/17 TIME: 09:32 Assessment/Plan VTE Prophylaxis VTE Prophylaxis Intervention: SCD's Lines/Catheters IV [facility] (from [facility]): Saline Lock Assessment/Plan Chief Complaint/Hosp Course Summary Assessment and Plan: Assessment: Severe iron deficiency anemia EGD 10/09/17 Impression: Large paraesophageal hernia Erosive gastritis. (poss cause of bleed) Rule out H. pylori infection. Biopsies obtained Otherwise normal EGD Colonoscopy 10/09/17 Impression: Normal colonic mucosa to cecum Moderate-sized internal hemorrhoids. Dizziness-likely secondary to anemia Plan: Continue present regimen High-fiber diet Continue PPI therapy Review pathology once available Continue to monitor H/H- transfuse if Hgb less than 7.5 Patient seen in collaboration with Subjective: Course reviewed with nursing staff Patient interviewed and examined All labs, imaging and other results reviewed The patient is feeling much better, currently Hgb stable s/p EGD/colonoscopy findings discussed above recommend annual Hemoccult stool testing and next colonoscopy in 10 years. Will continue to monitor H/H transfuse as needed. PHYSICAL EXAMINATION: GENERAL: Well developed, well nourished, alert & oriented x 3, in no acute distress SKIN: No lesions, no stigmata chronic liver disease, no evidence of bleeding diathesis LYMPHATIC: No palpable lymphadenopathy. HEAD: Normocephalic, atraumatic, no tenderness. EYES: Pupils equal reactive to light and accommodation, full extraocular movements, sclera clear, non-icteric, no discharge. EARS/NOSE AND THROAT: Ears normal, nose normal, oropharynx normal, oral membranes well hydrated without lesions. NECK: Supple, no masses. CHEST: Inspection within normal limits. CARDIOVASCULAR: Heart: Regular rate and rhythm, no murmurs, gallops or rubs. P GASTROINTESTINAL AND LIVER: Abdomen: Soft, non tenderness, non-distended, no hernias, no masses, no organomegaly, no ascites, no guarding, no rebound tenderness, normoactive bowel sounds. Rectal: Deferred. GENITOURINARY: Male genitalia within normal limits. EXTREMITIES: No cyanosis, clubbing or edema. Problems: Exam/Review of Systems Vital Signs Vitals Vital Signs Date Time Temp Pulse Resp B/P Pulse Ox O2 Delivery O2 Flow Rate FiO2 10/10/17 08:03 98.4 71 16 118/74 98 10/09/17 17:57 Room Air Intake and Output 10/09/17 10/09/17 10/10/17 15:00 23:00 07:00 Intake Total 850 ml 500 ml Output Total 800 ml Balance 50 ml 500 ml Results Result Diagram: 10/10/17 0502 10/09/17 0523 Results 24 hrs Laboratory Tests Test 10/10/17 05:02 White Blood Count 5.7 Red Blood Count 3.99 L Hemoglobin 8.5 L Hematocrit 29.3 L Mean Corpuscular Volume 73.4 L Mean Corpuscular Hemoglobin 21.3 L Mean Corpuscular Hemoglobin Concent 29.0 L Red Cell Distribution Width 26.0 H Platelet Count 242 Mean Platelet Volume 9.7 Neutrophils % 61.9 Lymphocytes % 29.9 Monocytes % 5.1 Eosinophils % 2.3 Basophils % 0.5 Nucleated Red Blood Cells % 0.7 H Neutrophils # 3.5 Lymphocytes # 1.7 Monocytes # 0.3 Eosinophils # 0.1 Basophils # 0.0 Nucleated Red Blood Cells # 0.0 Medications Medications Current Medications Pantoprazole (Protonix Iv) 40 mg DAILY@06 IV Last administered on 10/10/17 05 :57; Admin Dose 40 MG; Start 10/08/17 at 06:00 Acetaminophen 650 mg 650 mg Q6H PRN PO PAIN AND OR ELEVATED TEMP; Start at 02:00 Ferric Sodium Gluconate Complex/ Sodium Chloride (Ferrlecit/NS) 110 ml @ 110 mls/hr Q24H IVPB Last administered on 10/09/17 12:02; Admin Dose 110 MLS/HR; Start 10/08/17 at 12:00; Stop 10/12/17 at 12:59 Ondansetron HCl (Zofran Inj) 4 mg Q6H PRN IV NAUSEA AND/OR VOMITING; Start at 11:00 Tramadol HCl (Ultram) 50 mg Q6 PRN NGT pain Last administered on 10/09/17 06: 09; Admin Dose 50 MG; Start 10/08/17 at 11:00 SANDRO RIVAS Oct 10, 2017 09:44
[2017-10-10] MEDS: SOD FERRIC GLUC COMPLX 125 MG in SOD CHLORIDE 0.9% 100 ML IVPB SCH (12:26)
[2017-10-10 13:40] VITALS: BP 120/63; RESP 16
--- NOTE | 2017-10-10 17:19 | PN ---
Date/Time of Note Date/Time of Note DATE: 10/10/17 TIME: 17:15 Assessment/Plan VTE Prophylaxis VTE Prophylaxis Intervention: other Lines/Catheters [facility] Saline Lock Assessment/Plan Chief Complaint/Hosp Course ASSESSMENT: This is a 57-year-old man presenting with: 1. Severe anemia which appears to be microcytic in nature. The patient seems to be iron deficient, however, the patient's total bilirubin is elevated and also positive high LDH, cannot rule out hemolysis. But bilirubin normalised now. Unlikely Hemolysis 2. Leukopenia. 3. Dizzy spells probably secondary to severe anemia. 4. Obesity. Plan - EGD +erosive gastritis, on ppi - Colonoscopy + Haemmorhoids - HB 8.5 today - Will ask GI if will need further eval with capsule endoscopy since there was no active bleeding which would cause hb dropped to 4 'S - c/w PPI - c/w iv Fe - Appreciate GI and Hematology consults Problems: Subjective 24 Hr Interval Summary Free Text/Dictation s/p EGD EGD 10/09/17 Impression: Large paraesophageal hernia Erosive gastritis. (poss cause of bleed) Rule out H. pylori infection. Biopsies obtained Otherwise normal EGD Colonoscopy 10/09/17 Impression: Normal colonic mucosa to cecum Moderate-sized internal hemorrhoids. No new bleeding noted Exam/Review of Systems Vital Signs Vitals Vital Signs Date Time Temp Pulse Resp B/P Pulse Ox O2 Delivery O2 Flow Rate FiO2 10/10/17 13:40 98.1 65 16 120/63 98 10/09/17 17:57 Room Air Intake and Output 10/09/17 10/09/17 10/10/17 15:00 23:00 07:00 Intake Total 850 ml 500 ml Output Total 800 ml Balance 50 ml 500 ml Exam ENERAL: Awake, alert, oriented x4, moderately built male, does not appear to be in any acute distress. HEENT: Pupils equal, round, reactive to light. Marked pallor present. NECK: Thick, supple, no JVD. HEART: Regular rate and rhythm. CHEST: Clear breath sounds bilaterally. ABDOMEN: Soft, nontender, nondistended, positive normoactive bowel sounds. EXTREMITIES: No clubbing, cyanosis, or edema. BACK: The patient does not have any flank pain. Results Result Diagram: 10/10/17 0502 10/09/17 0523 Results 24 hrs Laboratory Tests Test 10/10/17 05:02 White Blood Count 5.7 Red Blood Count 3.99 L Hemoglobin 8.5 L Hematocrit 29.3 L Mean Corpuscular Volume 73.4 L Mean Corpuscular Hemoglobin 21.3 L Mean Corpuscular Hemoglobin Concent 29.0 L Red Cell Distribution Width 26.0 H Platelet Count 242 Mean Platelet Volume 9.7 Neutrophils % 61.9 Lymphocytes % 29.9 Monocytes % 5.1 Eosinophils % 2.3 Basophils % 0.5 Nucleated Red Blood Cells % 0.7 H Neutrophils # 3.5 Lymphocytes # 1.7 Monocytes # 0.3 Eosinophils # 0.1 Basophils # 0.0 Nucleated Red Blood Cells # 0.0 Medications Medications Current Medications Pantoprazole (Protonix Iv) 40 mg DAILY@06 IV Last administered on 10/10/17 05 :57; Admin Dose 40 MG; Start 10/08/17 at 06:00 Acetaminophen 650 mg 650 mg Q6H PRN PO PAIN AND OR ELEVATED TEMP; Start at 02:00 Ferric Sodium Gluconate Complex/ Sodium Chloride (Ferrlecit/NS) 110 ml @ 110 mls/hr Q24H IVPB Last administered on 10/10/17 12:26; Admin Dose 110 MLS/HR; Start 10/08/17 at 12:00; Stop 10/12/17 at 12:59 Ondansetron HCl (Zofran Inj) 4 mg Q6H PRN IV NAUSEA AND/OR VOMITING; Start at 11:00 Tramadol HCl (Ultram) 50 mg Q6 PRN NGT pain Last administered on 10/09/17 06: 09; Admin Dose 50 MG; Start 10/08/17 at 11:00 GARCIA LOTT MD Oct 10, 2017 17:19
[2017-10-10 19:58] VITALS: BP 124/68; RESP 16
[2017-10-11 02:17] VITALS: BP 134/71; RESP 14
[2017-10-11] MEDS: PANTOPRAZOLE 40 MG INJ IV SCH (05:43)
[2017-10-11] MEDS: traMADol 50 MG TAB NGT PRN ×2 (05:49→21:00)
[2017-10-11 06:01] LABS: ALBUMIN 3.8 g/dl (3.3-4.9); ALBUMIN/GLOBULIN RATIO 1.22; BILIRUBIN,INDIRECT 0.5 mg/dl (0-1.1); BILIRUBIN,TOTAL 0.5 mg/dl (0.2-1.3); CALCIUM 8.9 mg/dl (8.4-10.2); CREATININE 0.68 mg/dl (0.61-1.24); POTASSIUM 4.4 mmol/L (3.5-5.1); TOTAL PROTEIN 6.9 g/dl (6.1-8.1)
--- NOTE | 2017-10-11 07:29 | CONS ---
Date/Time of Note Date/Time of Note DATE: 10/11/17 TIME: 07:23 Assessment/Plan Assessment/Plan Chief Complaint/Hosp Course 57 yo male with #Severe iron deficiency anemia -colonoscopy reveals hemorrhoids and rectal bleeding -pt will need out patient capsule study to ensure no evidence of small bowl bleed -continue Ferrlecit 125 mg q day x 5 days #hemorrhoids -will likely need surgical evaluation for the bleeding hemorrhoids causing this level of anemia #upper extremity swelling -ultrasound ordered #elevated indirect bili -this occurred after the CT scan and I believe this is secondary to the scan itself -peripheral smear does not demonstrate evidence of hemolysis. furthermore haptoglobin is normal -bili now normal #Fatigue -2/2 to iron deficiency anemia #Dizziness -secondary to anemia -improved since blood transfusion -will continue to follow Problems: Consultation Date/Type/Reason Admit Date/Time Oct 07, 2017 at 20:41 Initial Consult Date 10/08/17 Type of Consultation: Hematology Reason for Consultation iron deficiency anemia Referring Provider: GARCIA LOTT MD 24 HR Interval Summary Free Text/Dictation pt now with swelling in arm Exam/Review of Systems Vital Signs Vitals Vital Signs Date Time Temp Pulse Resp B/P Pulse Ox O2 Delivery O2 Flow Rate FiO2 10/11/17 02:17 98.1 64 14 134/71 97 10/09/17 17:57 Room Air Intake and Output 10/10/17 10/10/17 10/11/17 15:00 23:00 07:00 Intake Total 2370 ml 670 ml Balance 2370 ml 670 ml Exam Constitutional: alert, oriented Psych: no complaints Head: atraumatic, normocephalic Eyes: nl conjunctiva ENMT: nl external ears & nose Neck: non-tender, supple Respiratory: clear to auscultation, normal air movement Cardiovascular: regular rate and rhythm Gastrointestinal: soft Musculoskeletal: swelling (right upper extremity) Results Result Diagram: 10/10/17 0502 10/11/17 0502 Results 24 hrs Laboratory Tests Test 10/11/17 05:02 Sodium Level 143 Potassium Level 4.4 Chloride Level 106 Carbon Dioxide Level 27 Anion Gap 14 Blood Urea Nitrogen 8 Creatinine 0.68 Glucose Level 100 Calcium Level 8.9 Total Bilirubin 0.5 Direct Bilirubin 0.00 Indirect Bilirubin 0.5 Aspartate Amino Transf (AST/SGOT) 18 Alanine Aminotransferase (ALT/SGPT) 25 Alkaline Phosphatase 81 Total Protein 6.9 Albumin 3.8 Globulin 3.10 Albumin/Globulin Ratio 1.22 Medications Medications Current Medications Pantoprazole (Protonix Iv) 40 mg DAILY@06 IV Last administered on 10/11/17 05 :43; Admin Dose 40 MG; Start 10/08/17 at 06:00 Acetaminophen 650 mg 650 mg Q6H PRN PO PAIN AND OR ELEVATED TEMP; Start at 02:00 Ferric Sodium Gluconate Complex/ Sodium Chloride (Ferrlecit/NS) 110 ml @ 110 mls/hr Q24H IVPB Last administered on 10/10/17 12:26; Admin Dose 110 MLS/HR; Start 10/08/17 at 12:00; Stop 10/12/17 at 12:59 Ondansetron HCl (Zofran Inj) 4 mg Q6H PRN IV NAUSEA AND/OR VOMITING; Start at 11:00 Tramadol HCl (Ultram) 50 mg Q6 PRN NGT pain Last administered on 10/11/17 05: 49; Admin Dose 50 MG; Start 10/08/17 at 11:00 TIKA BAUER M.D. Oct 11, 2017 07:29
[2017-10-11 07:34] VITALS: BP 135/76; RESP 16
[2017-10-11 08:01] LABS: ABNORMAL IP MESSAGE 1; BASOPHILS % 0.5 % (0.0-2.0); EOSINOPHILS # 0.1 10^3/ul (0.0-0.5); EOSINOPHILS % 2.3 % (0.0-7.0); HEMATOCRIT 31.7 % (42.0-52.0); LYMPHOCYTES # 1.7 10^3/ul (0.8-2.9); MEAN CORPUSCULAR HEMOGLOBIN 21.4 pg (29.0-33.0); MEAN CORPUSCULAR HGB CONC 28.4 g/dl (32.0-37.0); MEAN CORPUSCULAR VOLUME 75.5 fl (82.0-101.0); MEAN PLATELET VOLUME 10.3 fl (7.4-10.4); MONOCYTE # 0.3 10^3/ul (0.3-0.9); MONOCYTES % 5.1 % (0.0-11.0); NEUTROPHIL # 3.9 10^3/ul (1.6-7.5); NEUTROPHILS % 63.4 % (39.0-77.0); PLATELET COUNT 280 10^3/UL (140-415); POSITIVE DIFF @See below; RED CELL DISTRIBUTION WIDTH 27.3 % (11.5-14.5); WHITE BLOOD COUNT 6.1 10^3/ul (4.8-10.8)
--- NOTE | 2017-10-11 09:01 | RADRPT ---
PROCEDURE: US upper extremity Venous. CLINICAL INDICATION: Right arm edema , pain TECHNIQUE: Multiple sonographic images of the right upper extremity venous system was obtained uti lizing grayscale, color-flow, compressive sonography and doppler imaging with augmentation. The lisha ges were reviewed on a PACS workstation. COMPARISON: None. FINDINGS: There is normal compressibility and flow within the right internal jugular vein, subclavian vein, ax illary vein, brachial, basilic, , radial and ulnar veins. There is thrombosis of the right cephalic vein from the level of the wrist to the mid forearm. The cephalic vein in the upper arm is patent. RPTAT: AA IMPRESSION: Thrombosis of the right cephalic vein from the level of the wrist to the mid forearm. .Feliciano Montes MD, Date Time Electronically viewed and signed by .Feliciano Montes MD, MD on 10/11/2017 09:01 .S/
[2017-10-11] MEDS ORDERED: DOCUSATE SODIUM 100 MG CAP PO PRN (10:00)
--- NOTE | 2017-10-11 11:50 | PN ---
Date/Time of Note Date/Time of Note DATE: 10/11/17 TIME: 11:44 Assessment/Plan VTE Prophylaxis VTE Prophylaxis Intervention: SCD's Lines/Catheters IV Catheter Type (from [facility]): Saline Lock Assessment/Plan Chief Complaint/Hosp Course Summary Assessment and Plan: Assessment: Severe iron deficiency anemia EGD 10/09/17 Impression: Large paraesophageal hernia Erosive gastritis. (poss cause of bleed) Rule out H. pylori infection. Biopsies obtained Otherwise normal EGD Colonoscopy 10/09/17 Impression: Normal colonic mucosa to cecum Moderate-sized internal hemorrhoids. Dizziness-likely secondary to anemia Thrombosis of the right cephalic vein from the level of the wrist to the mid forearm- patient high risk for bleed, will be treated with cold compress at this time. Plan: Continue present regimen High-fiber diet Continue PPI therapy Review pathology once available Continue to monitor H/H- transfuse if Hgb less than 7.5 Erosive gastritis likely cause of bleed- however will order UGI with SBFT to r/ o possible SB etiology Patient seen in collaboration with Subjective: Course reviewed with nursing staff Patient interviewed and examined All labs, imaging and other results reviewed The patient is feeling much better, currently Hgb stable, will order UGI with SBFT to r/o underlying SB etiology for cause of anemia PHYSICAL EXAMINATION: GENERAL: Well developed, well nourished, alert & oriented x 3, in no acute distress SKIN: No lesions, no stigmata chronic liver disease, no evidence of bleeding diathesis LYMPHATIC: No palpable lymphadenopathy. HEAD: Normocephalic, atraumatic, no tenderness. EYES: Pupils equal reactive to light and accommodation, full extraocular movements, sclera clear, non-icteric, no discharge. EARS/NOSE AND THROAT: Ears normal, nose normal, oropharynx normal, oral membranes well hydrated without lesions. NECK: Supple, no masses. CHEST: Inspection within normal limits. CARDIOVASCULAR: Heart: Regular rate and rhythm, no murmurs, gallops or rubs. P GASTROINTESTINAL AND LIVER: Abdomen: Soft, non tenderness, non-distended, no hernias, no masses, no organomegaly, no ascites, no guarding, no rebound tenderness, normoactive bowel sounds. Rectal: Deferred. GENITOURINARY: Male genitalia within normal limits. EXTREMITIES: No cyanosis, clubbing or edema. Problems: Exam/Review of Systems Vital Signs Vitals Vital Signs Date Time Temp Pulse Resp B/P Pulse Ox O2 Delivery O2 Flow Rate FiO2 10/11/17 07:34 98.2 65 16 135/76 98 10/09/17 17:57 Room Air Intake and Output 10/10/17 10/10/17 10/11/17 15:00 23:00 07:00 Intake Total 2370 ml 670 ml Balance 2370 ml 670 ml Results Result Diagram: 10/11/17 0502 10/11/17 0502 Results 24 hrs Laboratory Tests Test 10/11/17 05:02 White Blood Count 6.1 Red Blood Count 4.20 L Hemoglobin 9.0 L Hematocrit 31.7 L Mean Corpuscular Volume 75.5 L Mean Corpuscular Hemoglobin 21.4 L Mean Corpuscular Hemoglobin Concent 28.4 L Red Cell Distribution Width 27.3 H Platelet Count 280 Mean Platelet Volume 10.3 Neutrophils % 63.4 Lymphocytes % 28.0 Monocytes % 5.1 Eosinophils % 2.3 Basophils % 0.5 Nucleated Red Blood Cells % 0.0 Neutrophils # 3.9 Lymphocytes # 1.7 Monocytes # 0.3 Eosinophils # 0.1 Basophils # 0.0 Nucleated Red Blood Cells # 0.0 Sodium Level 143 Potassium Level 4.4 Chloride Level 106 Carbon Dioxide Level 27 Anion Gap 14 Blood Urea Nitrogen 8 Creatinine 0.68 Glucose Level 100 Calcium Level 8.9 Total Bilirubin 0.5 Direct Bilirubin 0.00 Indirect Bilirubin 0.5 Aspartate Amino Transf (AST/SGOT) 18 Alanine Aminotransferase (ALT/SGPT) 25 Alkaline Phosphatase 81 Total Protein 6.9 Albumin 3.8 Globulin 3.10 Albumin/Globulin Ratio 1.22 Medications Medications Current Medications Pantoprazole (Protonix Iv) 40 mg DAILY@06 IV Last administered on 10/11/17 05 :43; Admin Dose 40 MG; Start 10/08/17 at 06:00 Acetaminophen (Tylenol Tab) 650 mg Q6H PRN PO PAIN AND OR ELEVATED TEMP; Start 10/08/17 at 02:00 Ondansetron HCl (Zofran Inj) 4 mg Q6H PRN IV NAUSEA AND/OR VOMITING; Start at 11:00 Tramadol HCl (Ultram) 50 mg Q6 PRN NGT pain Last administered on 10/11/17 05: 49; Admin Dose 50 MG; Start 10/08/17 at 11:00 Ferrous Sulfate (Ferrous Sulfate (Ec)) 325 mg TID PO ; Start 10/11/17 at 13:00 Docusate Sodium (Colace) 100 mg BID PRN PO CONSTIPATION; Start 10/11/17 at 10: 00 SANDRO RIVAS Oct 11, 2017 11:50
--- NOTE | 2017-10-11 12:52 | PN ---
GUNNAR LOU 10/11/17 1252: Date/Time of Note Date/Time of Note DATE: 10/11/17 TIME: 12:51 Assessment/Plan VTE Prophylaxis VTE Prophylaxis Intervention: ambulation Lines/Catheters IV Catheter Type (from [facility] [place]): Saline Lock Assessment/Plan Chief Complaint/Hosp Course 1. Severe anemia which appears to be microcytic in nature. 2. Leukopenia. 3. Dizzy spells probably secondary to severe anemia. 4. Obesity. Problems: Assessment/Plan 1. Iron supplement Subjective 24 Hr Interval Summary Constitutional: improved, no complaints Exam/Review of Systems Vital Signs Vitals Vital Signs Date Time Temp Pulse Resp B/P Pulse Ox O2 Delivery O2 Flow Rate FiO2 10/11/17 07:34 98.2 65 16 135/76 98 10/09/17 17:57 Room Air Intake and Output 10/10/17 10/10/17 10/11/17 14:59 22:59 06:59 Intake Total 2370 ml 670 ml Balance 2370 ml 670 ml Exam Constitutional: alert, oriented Neck: supple Respiratory: clear to auscultation Cardiovascular: regular rate and rhythm Results Result Diagram: 10/11/17 0502 10/11/17 0502 Results 24 hrs Laboratory Tests Test 10/11/17 05:02 White Blood Count 6.1 Red Blood Count 4.20 L Hemoglobin 9.0 L Hematocrit 31.7 L Mean Corpuscular Volume 75.5 L Mean Corpuscular Hemoglobin 21.4 L Mean Corpuscular Hemoglobin Concent 28.4 L Red Cell Distribution Width 27.3 H Platelet Count 280 Mean Platelet Volume 10.3 Neutrophils % 63.4 Lymphocytes % 28.0 Monocytes % 5.1 Eosinophils % 2.3 Basophils % 0.5 Nucleated Red Blood Cells % 0.0 Neutrophils # 3.9 Lymphocytes # 1.7 Monocytes # 0.3 Eosinophils # 0.1 Basophils # 0.0 Nucleated Red Blood Cells # 0.0 Sodium Level 143 Potassium Level 4.4 Chloride Level 106 Carbon Dioxide Level 27 Anion Gap 14 Blood Urea Nitrogen 8 Creatinine 0.68 Glucose Level 100 Calcium Level 8.9 Total Bilirubin 0.5 Direct Bilirubin 0.00 Indirect Bilirubin 0.5 Aspartate Amino Transf (AST/SGOT) 18 Alanine Aminotransferase (ALT/SGPT) 25 Alkaline Phosphatase 81 Total Protein 6.9 Albumin 3.8 Globulin 3.10 Albumin/Globulin Ratio 1.22 Medications Medications Current Medications Pantoprazole (Protonix Iv) 40 mg DAILY@06 IV Last administered on 10/11/17 05 :43; Admin Dose 40 MG; Start 10/08/17 at 06:00 Acetaminophen (Tylenol Tab) 650 mg Q6H PRN PO PAIN AND OR ELEVATED TEMP; Start 10/08/17 at 02:00 Ondansetron HCl (Zofran Inj) 4 mg Q6H PRN IV NAUSEA AND/OR VOMITING; Start at 11:00 Tramadol HCl (Ultram) 50 mg Q6 PRN NGT pain Last administered on 10/11/17 05: 49; Admin Dose 50 MG; Start 10/08/17 at 11:00 Ferrous Sulfate (Ferrous Sulfate (Ec)) 325 mg TID PO ; Start 10/11/17 at 13:00 Docusate Sodium (Colace) 100 mg BID PRN PO CONSTIPATION; Start 10/11/17 at 10: 00 GARCIA LOTT MD 10/11/17 1751: Assessment/Plan Assessment/Plan Assessment/Plan Small bowel f/u, spoke to GI Exam/Review of Systems Results Result Diagram: 10/11/17 0502 10/11/17 0502 GUNNAR LOU Oct 11, 2017 12:52 GARCIA LOTT MD Oct 11, 2017 17:51
[2017-10-11] MEDS: FERROUS SULFATE (EC) 325 MG TAB PO SCH ×2 (13:00→21:00)
[2017-10-11] MEDS: POLYETHYLENE GLYCOL 17 GM PACKET PO SCH ×2 (13:00→21:01)
[2017-10-11] MEDS: ESCITALOPRAM 10 MG TAB PO SCH ×2 (14:00→21:00)
[2017-10-11] MEDS ORDERED: BARIUM SULFATE 135 ML (E-Z HD) PO ONE (14:43)
[2017-10-11] MEDS ORDERED: SIMETH/SOD BICARB/CIT AC PKT (E-Z- GAS II) PO ONE (14:43)
--- NOTE | 2017-10-11 15:59 | RADRPT ---
PROCEDURE: Upper GI series. CLINICAL INDICATION: Abdomen pain. TECHNIQUE: Barium and gas granules were administered orally and several spot and overhead radiogra phs were obtained. Fluoroscopy time is 0.2 minutes and 21 images were obtained. COMPARISON: No prior study is available for comparison. FINDINGS: On the preliminary radiograph of the abdomen, there are degenerative changes of the spine. The bowel gas pattern is normal with no evidence of destruction. During swallowing, there is no aspiration. Esophageal motility is normal. There is a moderate hiatus hernia. There is no esophageal mass, ulcer, or stricture. There is no gastroesophageal reflux. The stomach and duodenum are normal with no ulceration, mass, or mucosal abnormality. IMPRESSION: 1. Degenerative changes of the spine. 2. No evidence of obstruction. 3. Moderate hiatus hernia. 4. Otherwise unremarkable upper GI series. RPTAT: QQ .Ifeanyi Carlson MD, Date Time Electronically viewed and signed by .Ifeanyi Carlson MD, on 10/11/2017 15:59 .R/
[2017-10-11 16:41] VITALS: BP 138/80; RESP 16
[2017-10-11 20:00] VITALS: BP 133/75; RESP 14
--- NOTE | 2017-10-11 20:04 | RADRPT ---
PROCEDURE: Small bowel follow-through. CLINICAL INDICATION: Abdomen pain. TECHNIQUE: Barium was administered orally and several 10 radiographs of the abdomen were obtained. COMPARISON: None. FINDINGS: On the preliminary radiograph of the abdomen, there are degenerative changes of the spine. The bowel gas pattern is normal with no evidence of obstruction. There is no small bowel displacement or mass. The small bowel folds are normal. There is no evidence of obstruction. Transit time is normal with contrast in the colon at 5 hours. . IMPRESSION: 1. Normal small bowel follow-through. RPTAT: QQ .Ifeanyi Carlson MD, Date Time Electronically viewed and signed by .Ifeanyi Carlson MD, on 10/11/2017 20:04 .R/
[2017-10-12 02:06] VITALS: BP 121/67; RESP 14
[2017-10-12] MEDS ORDERED: PENDING SANTYL ORDER FOR WOUND CARE XX PRN (05:00)
[2017-10-12] MEDS: traMADol 50 MG TAB NGT PRN (05:24)
[2017-10-12] MEDS ORDERED: PANTOPRAZOLE (EC) 40 MG TAB PO SCH (06:00)
[2017-10-12 06:23] LABS: ABNORMAL IP MESSAGE 1; BASOPHIL # 0.1 10^3/ul (0.0-0.1); BASOPHILS % 0.8 % (0.0-2.0); EOSINOPHILS # 0.1 10^3/ul (0.0-0.5); EOSINOPHILS % 2.1 % (0.0-7.0); HEMATOCRIT 31.2 % (42.0-52.0); HEMOGLOBIN 9.1 g/dl (14.0-18.0); LYMPHOCYTES # 1.6 10^3/ul (0.8-2.9); LYMPHOCYTES % 25.8 % (15.0-51.0); MEAN CORPUSCULAR HEMOGLOBIN 22.1 pg (29.0-33.0); MEAN CORPUSCULAR HGB CONC 29.2 g/dl (32.0-37.0); MEAN CORPUSCULAR VOLUME 75.9 fl (82.0-101.0); MEAN PLATELET VOLUME 9.9 fl (7.4-10.4); MONOCYTE # 0.4 10^3/ul (0.3-0.9); MONOCYTES % 6.6 % (0.0-11.0); NEUTROPHIL # 3.9 10^3/ul (1.6-7.5); NEUTROPHILS % 64.2 % (39.0-77.0); PLATELET COUNT 263 10^3/UL (140-415); POSITIVE DIFF @See below; RED BLOOD COUNT 4.11 10^6/ul (4.70-6.10); RED CELL DISTRIBUTION WIDTH 28.8 % (11.5-14.5); WHITE BLOOD COUNT 6.1 10^3/ul (4.8-10.8)
[2017-10-12 07:23] VITALS: BP 140/75; RESP 14
[2017-10-12] MEDS: POLYETHYLENE GLYCOL 17 GM PACKET PO SCH (08:28)
[2017-10-12] MEDS: FERROUS SULFATE (EC) 325 MG TAB PO SCH ×2 (08:28→14:36)
[2017-10-12] MEDS: ESCITALOPRAM 10 MG TAB PO SCH (08:28)
[2017-10-12] MEDS: ACETAMINOPHEN 325 MG TAB PO PRN ×2 (08:31→14:36)
--- NOTE | 2017-10-12 10:18 | PN ---
Date/Time of Note Date/Time of Note DATE: 10/12/17 TIME: 10:15 Assessment/Plan VTE Prophylaxis VTE Prophylaxis Intervention: ambulation Lines/Catheters IV [facility]ter Type (from [facility] Saline Lock Urinary Cath still in place: No Assessment/Plan Chief Complaint/Hosp Course Assessment: Severe iron deficiency anemia EGD 10/09/17 Impression: Large paraesophageal hernia Erosive gastritis. (poss cause of bleed) Rule out H. pylori infection. Biopsies obtained Otherwise normal EGD Colonoscopy 10/09/17 Impression: Normal colonic mucosa to cecum Moderate-sized internal hemorrhoids. Small bowel series Negative Anemia Thrombosis of the right cephalic vein from the level of the wrist to the mid forearm- patient high risk for bleed, Plan: Continue present regimen High-fiber diet Continue PPI therapy Review pathology once available Safe for outpatient management on current regimen Subjective: Course reviewed with nursing staff Patient interviewed and examined All labs, imaging and other results reviewed The patient is feeling well Tolerating diet without difficulties No evidence of overt bleeding Appears safe for outpatient management We will sign off and follow as needed PHYSICAL EXAMINATION: GENERAL: Well developed, well nourished, alert & oriented x 3, in no acute distress SKIN: No lesions, no stigmata chronic liver disease, no evidence of bleeding diathesis LYMPHATIC: No palpable lymphadenopathy. HEAD: Normocephalic, atraumatic, no tenderness. EYES: Pupils equal reactive to light and accommodation, full extraocular movements, sclera clear, non-icteric, no discharge. EARS/NOSE AND THROAT: Ears normal, nose normal, oropharynx normal, oral membranes well hydrated without lesions. NECK: Supple, no masses. CHEST: Inspection within normal limits. CARDIOVASCULAR: Heart: Regular rate and rhythm, no murmurs, gallops or rubs. P GASTROINTESTINAL AND LIVER: Abdomen: Soft, non tenderness, non-distended, no hernias, no masses, no organomegaly, no ascites, no guarding, no rebound tenderness, normoactive bowel sounds. Rectal: Deferred. GENITOURINARY: Male genitalia within normal limits. EXTREMITIES: No cyanosis, clubbing or edema. Problems: Exam/Review of Systems Vital Signs Vitals Vital Signs Date Time Temp Pulse Resp B/P Pulse Ox O2 Delivery O2 Flow Rate FiO2 10/12/17 07:23 98.1 68 14 140/75 99 10/09/17 17:57 Room Air Intake and Output 10/11/17 10/11/17 10/12/17 15:00 23:00 07:00 Intake Total 1300 ml 820 ml Balance 1300 ml 820 ml Results Result Diagram: 10/12/17 0510 10/11/17 0502 Results 24 hrs Laboratory Tests Test 10/12/17 05:10 10/12/17 05:58 White Blood Count 6.1 Red Blood Count 4.11 L Hemoglobin 9.1 L Hematocrit 31.2 L Mean Corpuscular Volume 75.9 L Mean Corpuscular Hemoglobin 22.1 L Mean Corpuscular Hemoglobin Concent 29.2 L Red Cell Distribution Width 28.8 H Platelet Count 263 Mean Platelet Volume 9.9 Neutrophils % 64.2 Lymphocytes % 25.8 Monocytes % 6.6 Eosinophils % 2.1 Basophils % 0.8 Nucleated Red Blood Cells % 0.0 Neutrophils # 3.9 Lymphocytes # 1.6 Monocytes # 0.4 Eosinophils # 0.1 Basophils # 0.1 Nucleated Red Blood Cells # 0.0 Lab Scanned Report REFERENCE LAB Medications Medications Current Medications Acetaminophen (Tylenol Tab) 650 mg Q6H PRN PO PAIN AND OR ELEVATED TEMP Last administered on 10/12/17 08:31; Admin Dose 650 MG; Start 10/08/17 at 02:00 Ondansetron HCl (Zofran Inj) 4 mg Q6H PRN IV NAUSEA AND/OR VOMITING; Start at 11:00 Tramadol HCl (Ultram) 50 mg Q6 PRN NGT pain Last administered on 10/12/17 05: 24; Admin Dose 50 MG; Start 10/08/17 at 11:00 Ferrous Sulfate (Ferrous Sulfate (Ec)) 325 mg TID PO Last administered on 10/12 08:28; Admin Dose 325 MG; Start 10/11/17 at 13:00 Docusate Sodium (Colace) 100 mg BID PRN PO CONSTIPATION Last administered on 05:25; Admin Dose 100 MG; Start 10/11/17 at 10:00 Polyethylene Glycol (Miralax) 17 gm DAILY PO Last administered on 10/12/17 08 :28; Admin Dose 17 GM; Start 10/11/17 at 13:00 Escitalopram Oxalate (Lexapro) 10 mg DAILY PO Last administered on 10/12/17 08:28; Admin Dose 10 MG; Start 10/11/17 at 14:00 Pantoprazole (Protonix Tab) 40 mg DAILY@06 PO Last administered on 10/12/17 05:23; Admin Dose 40 MG; Start 10/12/17 at 06:00 VAUGHN TUCKER MD Oct 12, 2017 10:18
--- NOTE | 2017-10-12 11:52 | PN ---
Date/Time of Note Date/Time of Note DATE: 10/12/17 TIME: 11:50 Assessment/Plan VTE Prophylaxis VTE Prophylaxis Intervention: ambulation Lines/Catheters IV [facility]from [facility] Saline Lock Urinary Cath still in place: No Assessment/Plan Chief Complaint/Hosp Course 1. Severe anemia which appears to be microcytic in nature, resolved. 2. Leukopenia, better. 3. Dizzy spells probably secondary to severe anemia, not repeated. 4. Obesity. Problems: Assessment/Plan 1. Ferrlicit was given 2. Continue cold compression right forearm 3. D?C planning. Subjective 24 Hr Interval Summary Constitutional: improved, no complaints Gastrointestinal: no complaints Genitourinary: no complaints Musculoskeletal: swelling (right hand) Exam/Review of Systems Vital Signs Vitals Vital Signs Date Time Temp Pulse Resp B/P Pulse Ox O2 Delivery O2 Flow Rate FiO2 10/12/17 07:23 98.1 68 14 140/75 99 10/09/17 17:57 Room Air Intake and Output 10/11/17 10/11/17 10/12/17 14:59 22:59 06:59 Intake Total 1300 ml 820 ml Balance 1300 ml 820 ml Exam Constitutional: alert, oriented Respiratory: clear to auscultation Cardiovascular: regular rate and rhythm Musculoskeletal: swelling (right forearm) Results Result Diagram: 10/12/17 0510 10/11/17 0502 Results 24 hrs Laboratory Tests Test 10/12/17 05:10 10/12/17 05:58 White Blood Count 6.1 Red Blood Count 4.11 L Hemoglobin 9.1 L Hematocrit 31.2 L Mean Corpuscular Volume 75.9 L Mean Corpuscular Hemoglobin 22.1 L Mean Corpuscular Hemoglobin Concent 29.2 L Red Cell Distribution Width 28.8 H Platelet Count 263 Mean Platelet Volume 9.9 Neutrophils % 64.2 Lymphocytes % 25.8 Monocytes % 6.6 Eosinophils % 2.1 Basophils % 0.8 Nucleated Red Blood Cells % 0.0 Neutrophils # 3.9 Lymphocytes # 1.6 Monocytes # 0.4 Eosinophils # 0.1 Basophils # 0.1 Nucleated Red Blood Cells # 0.0 Lab Scanned Report REFERENCE LAB Medications Medications Current Medications Acetaminophen (Tylenol Tab) 650 mg Q6H PRN PO PAIN AND OR ELEVATED TEMP Last administered on 10/12/17t 08:31; Admin Dose 650 MG; Start 11/14/17 at 02:00 Ondansetron HCl (Zofran Inj) 4 mg Q6H PRN IV NAUSEA AND/OR VOMITING; Start at 11:00 Tramadol HCl (Ultram) 50 mg Q6 PRN NGT pain Last administered on 10/12/17 05: 24; Admin Dose 50 MG; Start 10/08/17 at 11:00 Ferrous Sulfate (Ferrous Sulfate (Ec)) 325 mg TID PO Last administered on 10/12 08:28; Admin Dose 325 MG; Start 10/11/17 at 13:00 Docusate Sodium (Colace) 100 mg BID PRN PO CONSTIPATION Last administered on 05:25; Admin Dose 100 MG; Start 10/11/17 at 10:00 Polyethylene Glycol (Miralax) 17 gm DAILY PO Last administered on 10/12/17 08 :28; Admin Dose 17 GM; Start 10/11/17 at 13:00 Escitalopram Oxalate (Lexapro) 10 mg DAILY PO Last administered on 10/12/17 08:28; Admin Dose 10 MG; Start 10/11/17 at 14:00 Pantoprazole (Protonix Tab) 40 mg DAILY@06 PO Last administered on 10/12/17 05:23; Admin Dose 40 MG; Start 10/12/17 at 06:00 GUNNAR LOU Oct 12, 2017 11:52
--- NOTE | 2017-10-12 11:59 | PDOCDIS ---
Discharge Instructions CONDITION Patient Condition: Stable HOME CARE INSTRUCTIONS: Special Diet: regular diet ACTIVITY: Activity Restrictions: Slowly Increase Activity Bathing Restrictions: Shower FOLLOW UP/APPOINTMENTS Follow-up Plan PCP 1 week SCHOOL/WORK RELEASE May return to School/Work with: With Restrictions (light duty 2 weeks) GUNNAR LOU Oct 12, 2017 11:59
[2017-10-12] MEDS ORDERED: FER325 PO (12:00)
[2017-10-12] MEDS ORDERED: POLY17PO6 PO (12:00)
[2017-10-12] MEDS ORDERED: ESCI10TA48 PO (12:00)
--- NOTE | 2017-10-12 12:01 | DS ---
Date/Time of Note Date/Time of Note DATE: 10/12/17 TIME: 12:00 Discharge Summary Admission/Discharge Info Admit Date/Time Oct 07, 2017 at 20:41 Discharge Date/Time Discharge Diagnosis Anemia, Large paraesophageal hernia, Erosive gastritis. 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 According to the patient, he had been feeling weak and tired for the last 2 to 3 weeks. Two times when he was working in the garden he felt dizzy, but there was no episode of any passing out. He started noticing the left flank pain a week ago and that made him worried and went to the PMD. Patient went to the PMD and had labs drawn that showed hemoglobin of 5.6 and was told to come to the emergency department. Of note, patient said that he does not watch his poop always. He maybe might have had some blood in the poop. Denied any hematemesis, any melena, any hematuria. Denied any hemoptysis. Patient said that he lost 10 pounds in the past 2 to 3 months which was probably intentional and sometimes he feels a joint pain which he says that probably due to his job. On arrival to ED, the patient had a hemoglobin of 5.2, white count of 4.2. The patient was given 2 units of blood and repeat hemoglobin was 6.1 and he was admitted. PAST MEDICAL HISTORY: None. 1. Severe anemia which appears to be microcytic in nature, resolved. 2. Leukopenia, better. 3. Dizzy spells probably secondary to severe anemia, not repeated. 4. Obesity. Pt was stabilized in hospital, no more bleeding were found. Home Meds Active Scripts Pantoprazole* (Pantoprazole*) 40 Mg Tablet., 40 MG PO DAILY@06 for 30 Days Prov:GUNNAR LOU 10/12/17 Polyethylene Glycol* (Miralax*) 17 Gm Powd.pack, 17 GM PO DAILY for 30 Days Prov:GUNNAR LOU 10/12/17 Ferrous Sulfate* (Ferrous Sulfate*) 325 Mg Tabec, 325 MG PO TID for 30 Days, TAB Prov:GUNNAR LOU 10/12/17 Escitalopram Oxalate* (Escitalopram Oxalate*) 10 Mg Tablet, 10 MG PO DAILY for 30 Days, TAB Prov:GUNNAR LOU 10/12/17 Follow-up Plan PCP 1 week Primary Care Provider Not On Staff Doctor Time spent on discharge: < 30 minutes Pending Labs Laboratory Tests Test 10/12/17 05:10 10/12/17 05:58 White Blood Count 6.110^3/ul (4.8-10.8) Red Blood Count 4.1110^6/ul (4.70-6.10) Hemoglobin 9.1g/dl (14.0-18.0) Hematocrit 31.2% (42.0-52.0) Mean Corpuscular Volume 75.9fl (82.0-101.0) Mean Corpuscular Hemoglobin 22.1pg (29.0-33.0) Mean Corpuscular Hemoglobin Concent 29.2g/dl (32.0-37.0) Red Cell Distribution Width 28.8% (11.5-14.5) Platelet Count 60302^3/UL (140-415) Mean Platelet Volume 9.9fl (7.4-10.4) Neutrophils % 64.2% (39.0-77.0) Lymphocytes % 25.8% (15.0-51.0) Monocytes % 6.6% (0.0-11.0) Eosinophils % 2.1% (0.0-7.0) Basophils % 0.8% (0.0-2.0) Nucleated Red Blood Cells % 0.0/100WBC (0.0-0.0) Neutrophils # 3.910^3/ul (1.6-7.5) Lymphocytes # 1.610^3/ul (0.8-2.9) Monocytes # 0.410^3/ul (0.3-0.9) Eosinophils # 0.110^3/ul (0.0-0.5) Basophils # 0.110^3/ul (0.0-0.1) Nucleated Red Blood Cells # 0.010^3/ul (0.0-0.0) Lab Scanned Report REFERENCE [id number] GUNNAR LOU Oct 12, 2017 12:01
[2017-10-12] MEDS ORDERED: PANT40TA4 PO (12:02)
[2017-10-12 14:27] VITALS: BP 142/99; RESP 16
== END 2017-10-12 16:20 | disposition home or self-care (01) | DRG 812 ==
LOC: E/R 15:52 → MS2 20:41
PROVIDERS: ADMIT Internal Medicine Nephrology; ATTEND Internal Medicine Nephrology
PROC: 30233N1 Transfusion of Nonautologous Red Blood Cells into Peripheral Vein, Percutaneous Approach (ICD-10-PCS; 2017-10-07)
PROC: 0DJD8ZZ Inspection of Lower Intestinal Tract, Via Natural or Artificial Opening Endoscopic (ICD-10-PCS; 2017-10-09)
PROC: 0DB68ZX Excision of Stomach, Via Natural or Artificial Opening Endoscopic, Diagnostic (ICD-10-PCS; principal; 2017-10-09 19:15)
PROC: 0DB78ZX Excision of Stomach, Pylorus, Via Natural or Artificial Opening Endoscopic, Diagnostic (ICD-10-PCS; 2017-10-09 19:15)
DX: D50.9 Iron deficiency anemia, unspecified (principal); I82.611 Acute embolism and thrombosis of superficial veins of right upper extremity; E66.9 Obesity, unspecified; D72.819 Decreased white blood cell count, unspecified; K29.60 Other gastritis without bleeding; K44.9 Diaphragmatic hernia without obstruction or gangrene; K64.8 Other hemorrhoids; Z68.34 Body mass index [BMI] 34.0-34.9, adult
CPT/HCPCS: 36415; 36430; 74176; 74240; 74250; 80053; 82728; 83010; 83540; 83615; 83655; 84466; 84484; 85025; 85045; 85610; 85730; 86644; 86850; 86900; 86901; 86920; 88305; 88312; 93005; 93971; 96374; C9113; J2250; J2916; J3010; J7040; P9016

== ENCOUNTER 2018-06-18 17:54 | Emergency (ER) | END 2018-06-18 21:49 | disposition home or self-care (01) ==